=== PATIENT | male | born 2000 | race Two or more races ===

== ENCOUNTER 2021-05-13 11:20 | Emergency (ER) | payer BC ==
[2021-05-13 11:30] VITALS: BP 113/71; PULSE 72; RESP 18; TEMP 97.8
--- NOTE | 2021-05-13 11:42 | ED ---
General Adult HPI - General Chief complaint: Syncope Stated complaint: syncope, poss seizure Time Seen by Provider: 05/13/21 11:25 Source: patient Mode of arrival: ambulatory Limitations: no limitations - History of Present Illness Initial comments: Dictation was produced using [employer] dictation software. please excuse any grammatical, word or spelling errors. Chief Complaint: 21-year-old now presents to the emergency department for episode of syncope History of Present Illness: 21-year-old male who presents to the emergency depar tment for episodes of syncope vs seizure. Patient states his last episode was 2 days ago. He had episode on Wednesday and Wednesday. He was smoking marijuana with some other individuals when he allegedly syncopized. He was told that he had tonic-clonic like activity concerning for seizures. It is unclear if patient had a postictal state following the syncopal/seizure events but was told by his friend who witnessed the event 2 days ago that he didn't seem kind of out of it for several minutes after the shaking episode. Patient has had similar event 3 years ago. Patient has no medical history. Denies any history of seizures. No family history of any significant disease. Patient utilizes marijuana for several years and has never had issues like this. He drinks alcohol. No other drug use noted. States that there are other individuals who consumed the same marijuana with no adverse effects. The ROS documented in this emergency department record has been reviewed and confirmed by me. Those systems with pertinent positive or negative responses have been documented in the HPI. All other systems are other negative and/or noncontributory. PHYSICAL EXAM: General Impression: Alert and oriented x3, not in acute distress HEENT: Normocephalic atraumatic, extra-ocular movements intact, pupils equal and reactive to light bilaterally, mucous membranes moist. Cardiovascular: Heart regular rate and rhythm Chest: Able to complete full sentences, no retractions, no tachypnea Abdomen: abdomen soft, non-tender, non-distended, no organomegaly Musculoskeletal: Pulses present and equal in all extremities, no peripheral edema Motor: no focal deficits noted Neurological: CN II-XII grossly intact, no focal motor or sensory deficits noted, no hyperreflexia Skin: Intact with no visualized rashes Psych: Normal affect and mood ED course: 21-year-old male presents emergency department for multiple episodes of seizure versus syncope after marijuana usage. There was a described postic joy state making seizure more likely. Vital signs upon arrival are within acceptable limits. At the bedside patient has normal physical exam. He has no neurologic deficits. Computed tomography scan of the brain is unremarkable. Labs are unremarkable. CBC and metabolic panel is negative. Drug screen positive for marijuana. No other positive result. Patient observed in emergency department for one 30 minutes stable medical condition he had no recurrent episodes. Discussed patient that he should not drive until cleared by a seizure specialist. He is advised follow-up with the neurologist. EKG interpretation: Ventricular rate 60, normal sinus rhythm,. 144, QRS 84, QTC 368. No SD prolongation, no QTC prolongation, no ST or T-wave changes noted. Note EKG for comparison. Overall, this EKG is unremarkable - Related Data Allergies Allergy/AdvReac Type Severity Reaction Status Date / Time No Known Allergies Allergy Verified 05/13/21 11:34 Review of Systems ROS Statement: Those systems with pertinent positive or pertinent negative responses have been documented in the HPI. ROS Other: All systems not noted in ROS Statement are negative. Past Medical History Past Medical History: No Reported History History of Any Multi-Drug Resistant Organisms: None Reported Past Psychological History: No Psychological Hx Reported Smoking Status: Vaper Past Alcohol Use History: Rare Past Drug Use History: Marijuana General Exam Limitations: no limitations Course Vital Signs 05/13/21 11:22 Temperature 97.8 F Pulse Rate 72 Respiratory 18 Rate Blood Pressure 113/71 O2 Sat by Pulse 98 Oximetry Medical Decision Making - Lab Data Result diagrams: 05/13/21 11:43 05/13/21 11:43 Lab Results 05/13/21 05/13/21 05/13/21 Range/Units 11:43 11:43 11:47 WBC 5.5 (3.8-10.6) k/uL RBC 5.54 (4.30-5.90) m/uL Hgb 16.3 (13.0-17.5) gm/dL Hct 49.6 (39.0-53.0) % MCV 89.5 (80.0-100.0) fL MCH 29.5 (25.0-35.0) pg MCHC 32.9 (31.0-37.0) g/dL RDW 12.6 (11.5-15.5) % Plt Count 213 (150-450) k/uL MPV 7.5 Neutrophils % 46 % Lymphocytes % 39 % Monocytes % 8 % Eosinophils % 4 % Basophils % 1 % Neutrophils # 2.5 (1.3-7.7) k/uL Lymphocytes # 2.2 (1.0-4.8) k/uL Monocytes # 0.4 (0-1.0) k/uL Eosinophils # 0.2 (0-0.7) k/uL Basophils # 0.1 (0-0.2) k/uL Sodium 138 (137-145) mmol/L Potassium 5.0 (3.5-5.1) mmol/L Chloride 102 (98-107) mmol/L Carbon Dioxide 28 (22-30) mmol/L Anion Gap 8 mmol/L BUN 13 (9-20) mg/dL Creatinine 1.03 (0.66-1.25) mg/dL Est GFR (CKD-EPI)AfAm >90 (>60 ml/min/1.73 sqM) Est GFR (CKD-EPI)NonAf >90 (>60 ml/min/1.73 sqM) Glucose 107 H (74-99) mg/dL Calcium 10.1 (8.4-10.2) mg/dL Urine Opiates Screen Not Detected (NotDetected) Ur Oxycodone Screen Not Detected (NotDetected) Urine Methadone Screen Not Detected (NotDetected) Ur Propoxyphene Screen Not Detected (NotDetected) Ur Barbiturates Screen Not Detected (NotDetected) U Tricyclic Antidepress Not Detected (NotDetected) Ur Phencyclidine Scrn Not Detected (NotDetected) Ur Amphetamines Screen Not Detected (NotDetected) U Methamphetamines Scrn Not Detected (NotDetected) U Benzodiazepines Scrn Not Detected (NotDetected) Urine Cocaine Screen Not Detected (NotDetected) U Marijuana (THC) Screen Detected H (NotDetected) Disposition Clinical Impression: Seizure Disposition: HOME SELF-CARE Condition: Fair Instructions (If sedation given, give patient instructions): New-Onset Seizure in Adults (ED) Additional Instructions: Follow-up with a neurologist. Is patient prescribed a controlled substance at d/c from ED?: No
[2021-05-13 12:02] LABS: Basophils # (A) 0.1 k/uL (0-0.2); Basophils % (A) 1 %; Eosinophils # (A) 0.2 k/uL (0-0.7); Eosinophils % (A) 4 %; HCT 49.6 % (39.0-53.0); HGB 16.3 gm/dL (13.0-17.5); Lymphocytes # (A) 2.2 k/uL (1.0-4.8); Lymphocytes % (A) 39 %; MCH 29.5 pg (25.0-35.0); MCHC 32.9 g/dL (31.0-37.0); MCV 89.5 fL (80.0-100.0); Mean Platelet Volume 7.5; Monocytes # (A) 0.4 k/uL (0-1.0); Monocytes % (A) 8 %; Neutrophils # (A) 2.5 k/uL (1.3-7.7); Neutrophils % (A) 46 %; Platelet Count 213 k/uL (150-450); RBC 5.54 m/uL (4.30-5.90); RDW 12.6 % (11.5-15.5); WBC 5.5 k/uL (3.8-10.6)
--- NOTE | 2021-05-13 12:02 | CT ---
EXAMINATION TYPE: CT brain wo con DATE OF EXAM: 05/13/2021 COMPARISON: None. HISTORY: Seizure like activity and syncopal episode CT DLP: 1047.4 mGycm. Automated Exposure Control for Dose Reduction was Utilized. TECHNIQUE: CT scan of the head is performed without contrast. FINDINGS: There is no acute intracranial hemorrhage, mass effect, or midline shift identified. Mild symmetric atrophy over bilateral frontal lobes. No hydrocephalus. [place]-white matter differentiation is maintained. The globes are intact and the visualized sinuses are clear. IMPRESSION: No acute intracranial hemorrhage or midline shift is seen.
[2021-05-13 12:19] LABS: African American GFR (CKD) >90 (>60 ml/min/1.73 sqM); Anion Gap 8 mmol/L; Blood Urea Nitrogen 13 mg/dL (9-20); Calcium 10.1 mg/dL (8.4-10.2); Carbon Dioxide 28 mmol/L (22-30); Chloride 102 mmol/L (98-107); Glucose 107 mg/dL (74-99); Non-African American GFR(CKD) >90 (>60 ml/min/1.73 sqM); Sodium 138 mmol/L (137-145)
[2021-05-13 12:27] LABS: Amphetamine Screen,Urine Not Detected (NotDetected); Barbiturate Screen,Urine Not Detected (NotDetected); Benzodiazepines Screen,Urine Not Detected (NotDetected); Cocaine Screen,Urine Not Detected (NotDetected); Methadone Screen, Urine Not Detected (NotDetected); Opiate Screen,Urine Not Detected (NotDetected); Oxycodone Screen, Urine Not Detected (NotDetected); Phencyclidine Screen,Urine Not Detected (NotDetected); Tricyclic Antidepressant,Urine Not Detected (NotDetected); Urn Cannabinoid Scrn Detected (NotDetected)
== END 2021-05-13 13:06 | disposition home or self-care (01) ==
LOC: EC 11:20
DX: R56.9 Unspecified convulsions (principal); R55 Syncope and collapse; F17.290 Nicotine dependence, other tobacco product, uncomplicated
CPT/HCPCS: 36415; 70450; 80048; 80306; 85025; 93005; 99284